=== PATIENT | male | born 1990 | race Caucasian/White ===

== ENCOUNTER 2016-06-30 10:38 | Emergency (ER) | payer OTHER ==
[2016-06-30 11:50] LABS: HEMOGLOBIN 14.4 gm/dl (14.0-17.5); RED BLOOD COUNT 4.78 M/UL (4.20-5.50); WHITE BLOOD COUNT 16.6 K/UL (4.5-11.0)
[2016-06-30 12:44] LABS: BUN/CREATININE RATIO 15 (0-10)
== END 2016-06-30 13:45 | disposition home or self-care (01) ==
LOC: ER1 10:38
PROVIDERS: Physician Assistant Medical
DX: R10.13 Epigastric pain (principal); J02.9 Acute pharyngitis, unspecified; E86.0 Dehydration; R19.5 Other fecal abnormalities
CPT/HCPCS: 36415; 80053; 81001; 82150; 82272; 83690; 85025; 86403; 96360; 99284; C9113; J2405; J7030; J7050; Q9962